=== PATIENT | male | born 1985 | race Caucasian/White ===

== ENCOUNTER 2019-05-04 20:01 | Inpatient (IN) | payer OTHER ==
[2019-05-04 21:49] VITALS: BMI 33.3
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
[2019-05-04] MEDS ORDERED: IBUPROFEN 400 MG TABLET (FP) PO PRN (23:21)
[2019-05-04] MEDS ORDERED: ONDANSETRON *ODT* 4 MG TABLET SL PRN (23:21)
[2019-05-04] MEDS ORDERED: MENTHOL/PHENOL 1 EACH UD MM PRN (23:21)
[2019-05-04] MEDS ORDERED: BISMUTH SUBSALICYLATE 524 MG/30 ML UD PO PRN (23:21)
[2019-05-04] MEDS ORDERED: NICOTINE POLACRILEX 2 MG GUM BUC PRN (23:21)
[2019-05-04] MEDS ORDERED: guaiFENesin 200 MG/10 ML 10 ML UNIT-DOSE CUPS PO PRN (23:21)
[2019-05-04] MEDS ORDERED: hydrOXYzine PAMOATE 25 MG CAPSULE (FP) PO PRN (23:21)
[2019-05-04] MEDS ORDERED: MAGNESIUM CITRATE 300 ML BOTTLE PO PRN (23:21)
[2019-05-04] MEDS ORDERED: MAGNESIUM HYDROX 2400MG/30ML ORAL SUSPENSION 30 ML CUP PO PRN (23:21)
[2019-05-04] MEDS ORDERED: P-EPHED 60MG/TRIPROLIDI 2.5MG TABLET PO PRN (23:21)
[2019-05-04] MEDS ORDERED: ACETAMINOPHEN 325 MG TABLET (FP) PO PRN (23:21)
[2019-05-04] MEDS ORDERED: DICYCLOMINE HCL 10 MG CAPSULE PO PRN (23:21)
[2019-05-05] MEDS: diazePAM 5 MG TABLET PO SCH ×4 (00:35→21:17)
[2019-05-05] MEDS: MELATONIN 5 MG TABLETS PO PRN (00:35)
[2019-05-05] MEDS ORDERED: METHADONE HCL 10 MG TABLET PO ONE (09:19)
[2019-05-05] MEDS ORDERED: METHADONE 120 MG, METHADONE 20 MG PO ONE (09:45)
[2019-05-05] MEDS ORDERED: METHADONE HCL 10 MG TABLET ONE (09:56)
[2019-05-05] MEDS ORDERED: METHADONE HCL 40 MG DISPERSABLE TABLET ONE (09:57)
[2019-05-05] MEDS: NICOTINE 14 MG/24 HOURS TOPICAL PATCH TD SCH (10:08)
[2019-05-05] MEDS: PRENATAL VITAMINS W/ FOLIC ACID TABLET (FP) PO SCH (10:08)
[2019-05-05 10:10] LABS: HEMATOCRIT 41.4 % (35.4-49); HEMOGLOBIN 14.2 GM/dL (11.7-16.9); MCH 30.4 pg (25.7-33.7); MCHC 34.3 g/dl (32.0-35.9); MEAN CELL VOLUME 88.7 fl (80-96); MEAN PLT VOLUME 9.3 fl (7.5-11.1); PLATELET COUNT 183 K/MM3 (134-434); RBC 4.67 M/mm3 (4.00-5.60); RDW 13.5 % (11.9-15.9)
[2019-05-05 10:21] LABS: ALBUMIN 3.7 g/dl (3.4-5.0); BILIRUBIN,TOTAL 0.4 mg/dL (0.2-1); BLOOD UREA NITROGEN 15.2 mg/dL (7-18); CALCIUM 8.7 mg/dL (8.5-10.1); CREATININE 0.9 mg/dL (0.55-1.3); POTASSIUM 4.2 mmol/L (3.5-5.1); TOT PROT 6.7 g/dl (6.4-8.2)
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
[2019-05-05] MEDS: hydrOXYzine PAMOATE 50 MG CAPSULE (FP) PO PRN ×2 (12:19→21:19)
--- NOTE | 2019-05-05 12:26 | PN ---
[facility] CIWA - CIWA Score Nausea/Vomitin-No Nausea/No Vomiting Muscle Tremors: 3 Anxiety: 2 Agitation: 2 Paroxysmal Sweats: 2 Orientation: 0-Oriented Tacttile Disturbances: 0-None Auditory Disturbances: 0-None Visual Disturbances: 0-None Headache: 0-None Present CIWA-Ar Total Score: 9 S Progress Note (SOAP) Subjective: anxiety restless sweats Objective: 05/05/19 12:25 Vital Signs Temperature 97.9 F 05/05/19 09:58 Pulse Rate 71 05/05/19 09:58 Respiratory Rate 19 05/05/19 09:58 Blood Pressure 142/77 05/05/19 09:58 O2 Sat by Pulse Oximetry (%) Laboratory Tests 05/05/19 05/05/19 08:30 08:30 WBC 6.0 RBC 4.67 Hgb 14.2 Hct 41.4 MCV 88.7 MCH 30.4 MCHC 34.3 RDW 13.5 Plt Count 183 MPV 9.3 Sodium 139 Potassium 4.2 Chloride 106 Carbon Dioxide 29 Anion Gap 4 L BUN 15.2 Creatinine 0.9 Est GFR (CKD-EPI)AfAm 129.61 Est GFR (CKD-EPI)NonAf 111.83 Random Glucose 97 Calcium 8.7 Total Bilirubin 0.4 AST 29 ALT 50 Alkaline Phosphatase 63 Total Protein 6.7 Albumin 3.7 aaox3 ambulating no acute distress Assessment: 05/05/19 12:25 withdrawals Plan: continue detox increase fluids
[2019-05-05] MEDS: diazePAM 5 MG TABLET PO PRN (17:42)
[2019-05-05] MEDS: THIAMINE HCL 100 MG TABLET (FP) PO SCH (21:17)
[2019-05-05] MEDS: QUEtiapine FUMARATE 100 MG TABLET (FP) PO SCH (21:17)
[2019-05-05] MEDS: ACETAMINOPHEN 325 MG TABLET (FP) PO PRN (22:22)
[2019-05-06] MEDS ORDERED: METHADONE HCL 10 MG TABLET ONE (05:04)
[2019-05-06] MEDS ORDERED: METHADONE HCL 40 MG DISPERSABLE TABLET ONE (05:05)
[2019-05-06] MEDS ORDERED: METHADONE HCL 40 MG DISPERSABLE TABLET PO SCH (06:00)
[2019-05-06] MEDS: METHADONE 120 MG, METHADONE 20 MG PO SCH (06:46)
[2019-05-06] MEDS: diazePAM 5 MG TABLET PO SCH ×2 (06:46→17:26)
[2019-05-06] MEDS: diazePAM 5 MG TABLET PO PRN ×2 (09:49→21:29)
[2019-05-06] MEDS: NICOTINE 14 MG/24 HOURS TOPICAL PATCH TD SCH (10:42)
[2019-05-06] MEDS: PRENATAL VITAMINS W/ FOLIC ACID TABLET (FP) PO SCH (10:42)
--- NOTE | 2019-05-06 16:36 | EKG ---
Test Reason : Blood Pressure : / mmHG Vent. Rate : 060 BPM Atrial Rate : 060 BPM P-R Int : 170 ms QRS Dur : 104 ms QT Int : 440 ms P-R-T Axes : 038 045 030 degrees QTc Int : 440 ms NORMAL SINUS RHYTHM NORMAL ECG NO PREVIOUS ECGS AVAILABLE Confirmed by MD KERRIE, EVITA ([id number]) on 05/06/2019 4:36:02 PM Referred By: Confirmed By:EVITA SY MD
--- NOTE | 2019-05-06 17:13 | PN ---
S CIWA - CIWA Score Nausea/Vomitin-Mild Nausea/No Vomiting Muscle Tremors: 3 Anxiety: 3 Agitation: 2 Paroxysmal Sweats: 1-Minimal Palms Moist Orientation: 0-Oriented Tacttile Disturbances: 0-None Auditory Disturbances: 0-None Visual Disturbances: 0-None Headache: 1-Very Mild CIWA-Ar Total Score: 11 [facility] Progress Note (SOAP) Subjective: c/o nausea,no vomiting, sweats, anxiety Objective: 05/06/19 17:14 Vital Signs - 24 hr 05/05/19 05/05/19 05/06/19 17:48 21:45 00:30 Temperature 98.1 F 97.9 F Pulse Rate 69 68 Respiratory 18 17 18 Rate Blood Pressure 138/79 133/89 05/06/19 05/06/19 05/06/19 03:30 07:24 09:29 Temperature 98.1 F 97.1 F L Pulse Rate 76 78 Respiratory 18 18 18 Rate Blood Pressure 128/97 140/88 05/06/19 13:40 Temperature 99.1 F Pulse Rate 77 Respiratory 18 Rate Blood Pressure 131/62 Laboratory Tests 05/05/19 05/05/19 05/05/19 08:30 08:30 08:30 WBC 6.0 RBC 4.67 Hgb 14.2 Hct 41.4 MCV 88.7 MCH 30.4 MCHC 34.3 RDW 13.5 Plt Count 183 MPV 9.3 Sodium 139 Potassium 4.2 Chloride 106 Carbon Dioxide 29 Anion Gap 4 L BUN 15.2 Creatinine 0.9 Est GFR (CKD-EPI)AfAm 129.61 Est GFR (CKD-EPI)NonAf 111.83 Random Glucose 97 Calcium 8.7 Total Bilirubin 0.4 AST 29 ALT 50 Alkaline Phosphatase 63 Total Protein 6.7 Albumin 3.7 RPR Titer Nonreactive Assessment: 05/06/19 17:14 Kyaw w/s Plan: Cont detox maintain safety increase po fluids
[2019-05-06] MEDS: METHOCARBAMOL 500 MG TABLET PO PRN (17:27)
[2019-05-06] MEDS: hydrOXYzine PAMOATE 50 MG CAPSULE (FP) PO PRN (21:27)
[2019-05-06] MEDS: THIAMINE HCL 100 MG TABLET (FP) PO SCH (21:27)
[2019-05-06] MEDS: QUEtiapine FUMARATE 100 MG TABLET (FP) PO SCH (21:27)
[2019-05-07] MEDS ORDERED: METHADONE HCL 10 MG TABLET ONE (04:12)
[2019-05-07] MEDS ORDERED: METHADONE HCL 40 MG DISPERSABLE TABLET ONE (04:13)
[2019-05-07] MEDS ORDERED: diazePAM 5 MG TABLET PO ONE ×3 (06:00→22:00)
[2019-05-07] MEDS: METHADONE 120 MG, METHADONE 20 MG PO SCH (06:05)
[2019-05-07] MEDS: METHOCARBAMOL 500 MG TABLET PO PRN ×2 (08:51→17:50)
[2019-05-07] MEDS: PRENATAL VITAMINS W/ FOLIC ACID TABLET (FP) PO SCH (10:35)
[2019-05-07] MEDS: NICOTINE 14 MG/24 HOURS TOPICAL PATCH TD SCH (10:35)
[2019-05-07] MEDS: diazePAM 5 MG TABLET PO PRN (10:37)
[2019-05-07] MEDS: hydrOXYzine PAMOATE 50 MG CAPSULE (FP) PO PRN ×2 (12:22→17:50)
[2019-05-07] MEDS ORDERED: GABAPENTIN 300 MG CAPSULE PO ONE (14:38)
--- NOTE | 2019-05-07 14:39 | PN ---
Psychiatric Progress Note Vital Signs: Vital Signs Period Temp Pulse Resp BP Sys/Herrera Pulse Ox Last 24 Hr 97.1 F-98.1 F 68-91 16-18 118-153/81-91 Date of Session: 05/07/19 Chief Complaint:: " I'm having so much anxiety. I need medications." HPI: Patient admitted to for benzodiazepine and synthetic cannabis dependence. Consultation ordered as patient is anxious, irritable, and restless. ROS: Patient is irritable, anxious, and restless. Current Medications: Active Medications Generic Name Dose Route Start Last Admin Trade Name Freq PRN Reason Stop Dose Admin Acetaminophen 650 mg 05/04/19 23:21 05/05/19 22:22 Tylenol - PO 650 mg Q6H PRN Administration PAIN LEVEL 4 - 6 Acetaminophen 650 mg 05/04/19 23:21 Tylenol - PO Q6H PRN FEVER Al Hydroxide/Mg Hydroxide 30 ml 05/04/19 23:21 Mylanta Oral Suspension - PO Q6H PRN DYSPEPSIA Bismuth Subsalicylate 524 mg 05/04/19 23:21 Pepto-Bismol - PO Q1H PRN DIARRHEA Dicyclomine HCl 10 mg 05/04/19 23:21 Bentyl - PO 05/10/19 23:22 Q6H PRN Abdominal Cramping Eucalyptus/Menthol/Phenol/Sorbitol 1 each 05/04/19 23:21 Cepastat Lozenge - MM 05/10/19 23:21 Q4H PRN SORE THROAT Guaifenesin 10 ml 05/04/19 23:21 Robitussin - PO Q6H PRN COUGH Hydroxyzine Pamoate 50 mg 05/05/19 11:36 05/07/19 12:22 Vistaril - PO 50 mg Q4H PRN Administration ANXIETY Ibuprofen 400 mg 05/04/19 23:21 Motrin - PO Q6H PRN PAIN LEVEL 1 - 3 Magnesium Citrate 300 ml 05/04/19 23:21 Citroma - PO Q48H PRN CONSTIPATION Magnesium Hydroxide 30 ml 05/04/19 23:21 Milk Of Magnesia - PO PRN PRN CONSTIPATION Melatonin 5 mg 05/04/19 23:21 05/05/19 00:35 Melatonin PO 5 mg HS PRN Administration INSOMNIA Methadone HCl 120 mg/ 140 mg 05/06/19 06:00 05/07/19 06:05 Methadone HCl 20 mg PO 05/12/19 05:59 140 mg DAILY@0600 BARBIE Administration Methocarbamol 500 mg 05/04/19 23:21 05/07/19 08:51 Robaxin - PO 05/10/19 23:21 500 mg Q6H PRN Administration MUSCLE SPASMS Nicotine 14 mg 05/05/19 10:00 05/07/19 10:35 Nicoderm Patch - TD Not Given DAILY BARBIE Nicotine Polacrilex 2 mg 05/04/19 23:21 Nicorette Gum - BUC Q2H PRN NICOTINE REPLACEMENT RX Ondansetron HCl 4 mg 05/04/19 23:21 Zofran Odt - SL 05/10/19 23:22 Q12H PRN Nausea/Vomiting Multivit/Folic Acid/Iron 1 tab 05/05/19 10:00 05/07/19 10:35 Vitamins (Sjr) - PO 1 tab DAILY BARBIE Administration Pseudoephedrine/Triprolidine 1 combo 05/04/19 23:21 Actifed - PO 05/10/19 23:22 Q6H PRN NASAL CONGESTION Quetiapine Fumarate 100 mg 05/05/19 22:00 05/06/19 21:27 Seroquel - PO 100 mg HS BARBIE Administration Thiamine HCl 100 mg 05/05/19 22:00 05/06/19 21:27 Vitamin B1 - PO 100 mg HS BARBIE Administration Medication(s) Change(s): Yes. Will give one time dose of gabapentin 600mg. Will order gabapentin 300mg BID. Current Side Effect: No Lab tests ordered: No Lab tests reviewed: Yes Provider note:: Patient seen by Dr. Fletcher. Dr. Fletcher's note read and appreciated. Consultation ordered after patient was made aware that his valium PRN was completed as he was scheduled for discharge today. Patient presents as highly upset, anxious, irritable, and restless. Patient stated to fiction writer, " i am going to have a panic attack. why would they discontinue my valium." Medications reviewed. Patient is prescribed vistaril 50mg q4h but stated that it is not very effective. Mr. Greenberg states that gabapentin 600mg is effective for his anxiety although is not currently prescribed gabapentin by outside provider. Patient also requesting lyrica but was informed by fiction writer that lyrica will not be ordered. Patient is visibly anxious and irritable. Will order a one time dose of gabapentin 600mg HS + vistaril 50mg. Will also order gabapentin 300mg BID. Benefits and side effects discussed. Verbal consent given. Total face to face time:: 25 Mental Status Exam - Mental Status Exam Alert and Oriented to: Time, Place, Person Cognitive Function: Good Patient Appearance: Well Groomed Mood: Anxious, Irritable Affect: Mood Congruent Patient Behavior: Restless, Agitated Speech Pattern: Clear, Excessive Voice Loudness: Normal, Mildly Loud Thought Process: Intact, Goal Oriented Thought Disorder: Not Present Hallucinations: Denies Suicidal Ideation: Denies Homicidal Ideation: Denies Insight/Judgement: Poor Sleep: Fair Appetite: Fair Muscle strength/Tone: Normal Gait/Station: Normal Psychiatric Treatment Plan - Problem List (1) Substance induced mood disorder Current Visit: Yes (2) Substance-induced sleep disorder Current Visit: Yes (3) ADHD (attention deficit hyperactivity disorder) Current Visit: No (4) Methadone maintenance therapy patient Current Visit: Yes (5) Mood disorder Current Visit: Yes (6) Cannabis dependence Current Visit: Yes (7) Sedative, hypnotic or anxiolytic dependence with withdrawal, uncomplicated Current Visit: Yes
[2019-05-07] MEDS ORDERED: hydrOXYzine PAMOATE 25 MG CAPSULE (FP) PO ONE (15:00)
--- NOTE | 2019-05-07 17:01 | PN ---
[facility] CIWA - CIWA Score Nausea/Vomitin-No Nausea/No Vomiting Muscle Tremors: 3 Anxiety: 5 Agitation: 5 Paroxysmal Sweats: 2 Orientation: 0-Oriented Tacttile Disturbances: 0-None Auditory Disturbances: 0-None Visual Disturbances: 0-None Headache: 0-None Present CIWA-Ar Total Score: 15 [facility] Progress Note (SOAP) Subjective: Patient extremely anxious, irritable, pacing in hallway requesting medication, argumentative, sweating. Objective: 05/07/19 16:59 Vital Signs Temperature 97.7 F 05/07/19 13:00 Pulse Rate 83 05/07/19 13:00 Respiratory Rate 16 05/07/19 13:00 Blood Pressure 130/81 05/07/19 13:00 O2 Sat by Pulse Oximetry (%) Laboratory Tests 05/05/19 05/05/19 05/05/19 08:30 08:30 08:30 WBC 6.0 RBC 4.67 Hgb 14.2 Hct 41.4 MCV 88.7 MCH 30.4 MCHC 34.3 RDW 13.5 Plt Count 183 MPV 9.3 Sodium 139 Potassium 4.2 Chloride 106 Carbon Dioxide 29 Anion Gap 4 L BUN 15.2 Creatinine 0.9 Est GFR (CKD-EPI)AfAm 129.61 Est GFR (CKD-EPI)NonAf 111.83 Random Glucose 97 Calcium 8.7 Total Bilirubin 0.4 AST 29 ALT 50 Alkaline Phosphatase 63 Total Protein 6.7 Albumin 3.7 RPR Titer Nonreactive PE alert and oriented x 3 skin warm, + sweating, facial flushing neck supple, no jvd car s1s2 resp cta ext + tremors, full rom amb ad jennifer extremely anxious, irritable angry Assessment: 05/07/19 17:00 BZO withdrawal symptoms [facility] Plan: Patient received last 5mg dose of valium today, however, prn valium active and he was medicated with 10mg at 10:37am. Due to active prn schedule, dose titration not completed. Case discussed with Dr. Chisholm and Dr. Julio, both agreed to discontinue prn Valium, but to order 5mg dose for this afternoon and this evening, start Valium 5mg bid tomorrow then daily x one on 05/09/19. Patient agreed with plan. Patient also seen by psych and started on gabapentin. continue detox monitor clinically
[2019-05-07] MEDS: GABAPENTIN 300 MG CAPSULE PO SCH (22:11)
[2019-05-07] MEDS: MELATONIN 5 MG TABLETS PO PRN (22:12)
[2019-05-07] MEDS: THIAMINE HCL 100 MG TABLET (FP) PO SCH (22:12)
[2019-05-07] MEDS: QUEtiapine FUMARATE 100 MG TABLET (FP) PO SCH (22:12)
[2019-05-07] MEDS: ACETAMINOPHEN 325 MG TABLET (FP) PO PRN (22:19)
[2019-05-08] MEDS ORDERED: METHADONE HCL 10 MG TABLET ONE (04:16)
[2019-05-08] MEDS ORDERED: METHADONE HCL 40 MG DISPERSABLE TABLET ONE (04:16)
[2019-05-08] MEDS: METHADONE 120 MG, METHADONE 20 MG PO SCH (05:54)
[2019-05-08] MEDS: hydrOXYzine PAMOATE 50 MG CAPSULE (FP) PO PRN ×3 (05:56→18:50)
[2019-05-08] MEDS: PRENATAL VITAMINS W/ FOLIC ACID TABLET (FP) PO SCH (09:54)
[2019-05-08] MEDS: GABAPENTIN 300 MG CAPSULE PO SCH ×2 (09:54→22:00)
[2019-05-08] MEDS: NICOTINE 14 MG/24 HOURS TOPICAL PATCH TD SCH (09:54)
[2019-05-08] MEDS: diazePAM 5 MG TABLET PO SCH ×2 (09:55→22:00)
[2019-05-08 10:08] LABS: PH,URINE 5.5 (5.0-8.0); URINE APPEARANCE CLEAR; URINE BILIRUBIN NEGATIVE (NEGATIVE); URINE COLOR YELLOW; URINE GLUCOSE (UA) NEGATIVE (NEGATIVE); URINE KETONE NEGATIVE (NEGATIVE); URINE LEUK ESTERASE NEGATIVE (NEGATIVE); URINE NITRITE NEGATIVE (NEGATIVE); URINE PROTEIN NEGATIVE (NEGATIVE); URINE UROBILINOGEN 0.2 mg/dL (0.2-1.0)
[2019-05-08] MEDS ORDERED: COLLOIDAL OATMEAL 1 BAR EACH TP ONE (11:56)
[2019-05-08] MEDS ORDERED: cloNIDine HCL 0.1 MG TABLET PO ONE (11:59)
--- NOTE | 2019-05-08 12:21 | PN ---
[facility] CIWA - CIWA Score Nausea/Vomitin-No Nausea/No Vomiting Muscle Tremors: 3 Anxiety: 2 Agitation: 2 Paroxysmal Sweats: 2 Orientation: 0-Oriented Tacttile Disturbances: 0-None Auditory Disturbances: 0-None Visual Disturbances: 0-None Headache: 0-None Present CIWA-Ar Total Score: 9 [facility] Progress Note (SOAP) Subjective: sweats anxiety restless rash on my belly and inner thighs cause i sweat alot Objective: 05/08/19 11:59 Vital Signs Temperature 98.0 F 05/08/19 09:06 Pulse Rate 117 H 05/08/19 09:06 Respiratory Rate 18 05/08/19 09:06 Blood Pressure 131/82 05/08/19 09:06 O2 Sat by Pulse Oximetry (%) aaox3 ambulating no acute distress Assessment: 05/08/19 12:00 withdrawals fungal rash noted to belly area. pt states it looks like the same rash inner thighs. Plan: continue detox aveeno soap x one ordered nystatin cream ordered d/c in am
[2019-05-08] MEDS: METHOCARBAMOL 500 MG TABLET PO PRN ×2 (12:35→18:50)
[2019-05-08] MEDS: NYSTATIN 100,000 UNIT/GM TOPICAL CREAM 15 GM TUBE TP SCH ×3 (15:44→23:41)
[2019-05-08] MEDS: QUEtiapine FUMARATE 100 MG TABLET (FP) PO SCH (22:00)
[2019-05-08] MEDS: THIAMINE HCL 100 MG TABLET (FP) PO SCH (22:00)
[2019-05-08] MEDS: MELATONIN 5 MG TABLETS PO PRN (22:01)
[2019-05-09] MEDS ORDERED: METHADONE HCL 10 MG TABLET ONE (03:57)
[2019-05-09] MEDS ORDERED: METHADONE HCL 40 MG DISPERSABLE TABLET ONE (03:58)
[2019-05-09] MEDS: METHADONE 120 MG, METHADONE 20 MG PO SCH (05:21)
[2019-05-09] MEDS: diazePAM 5 MG TABLET PO SCH (05:21)
[2019-05-09] MEDS: METHOCARBAMOL 500 MG TABLET PO PRN (05:44)
[2019-05-09] MEDS: hydrOXYzine PAMOATE 50 MG CAPSULE (FP) PO PRN ×2 (05:44→13:26)
[2019-05-09] MEDS ORDERED: diazePAM 5 MG TABLET PO SCH (06:00)
[2019-05-09] MEDS: NYSTATIN 100,000 UNIT/GM TOPICAL CREAM 15 GM TUBE TP SCH ×2 (07:04→13:16)
[2019-05-09] MEDS: MAG HYDROX/AL HYDROX/SIMETH 30 ML UNIT-DOSE CUP PO PRN ×2 (07:28→13:24)
--- NOTE | 2019-05-09 08:58 | DS ---
[facility] Detox Discharge Summary Admission Date: 05/04/19 Discharge Date: 05/09/19 - History Present History: Cannabis Dependence, Sedative Dependence, MMTP - Physical Exam Results Vital Signs: Vital Signs Temperature 96.4 F L 05/09/19 06:27 Pulse Rate 90 05/09/19 06:27 Respiratory Rate 18 05/09/19 06:27 Blood Pressure 136/69 05/09/19 06:27 O2 Sat by Pulse Oximetry (%) Pertinent Admission Physical Exam Findings: Vital Signs Temperature 96.4 F L 05/09/19 06:27 Pulse Rate 90 05/09/19 06:27 Respiratory Rate 18 05/09/19 06:27 Blood Pressure 136/69 05/09/19 06:27 O2 Sat by Pulse Oximetry (%) Laboratory Tests 05/05/19 05/05/19 05/05/19 08:30 08:30 08:30 WBC 6.0 RBC 4.67 Hgb 14.2 Hct 41.4 MCV 88.7 MCH 30.4 MCHC 34.3 RDW 13.5 Plt Count 183 MPV 9.3 Sodium 139 Potassium 4.2 Chloride 106 Carbon Dioxide 29 Anion Gap 4 L BUN 15.2 Creatinine 0.9 Est GFR (CKD-EPI)AfAm 129.61 Est GFR (CKD-EPI)NonAf 111.83 Random Glucose 97 Calcium 8.7 Total Bilirubin 0.4 AST 29 ALT 50 Alkaline Phosphatase 63 Total Protein 6.7 Albumin 3.7 Urine Color Urine Appearance Urine pH Ur Specific Jackson Urine Protein Urine Glucose (UA) Urine Ketones Urine Blood Urine Nitrite Urine Bilirubin Urine Urobilinogen Ur Leukocyte Esterase RPR Titer Nonreactive 05/08/19 07:30 WBC RBC Hgb Hct MCV MCH MCHC RDW Plt Count MPV Sodium Potassium Chloride Carbon Dioxide Anion Gap BUN Creatinine Est GFR (CKD-EPI)AfAm Est GFR (CKD-EPI)NonAf Random Glucose Calcium Total Bilirubin AST ALT Alkaline Phosphatase Total Protein Albumin Urine Color Yellow Urine Appearance Clear Urine pH 5.5 Ur Specific Jackson 1.012 Urine Protein Negative Urine Glucose (UA) Negative Urine Ketones Negative Urine Blood Negative Urine Nitrite Negative Urine Bilirubin Negative Urine Urobilinogen 0.2 Ur Leukocyte Esterase Negative RPR Titer aaox3 ambulating no acute distress - Treatment Hospital Course: Detox Protocol Followed, Detoxed Safely, Responded well, Discharged Condition Good, Rehab Referral Accepted - Medication Discharge Medications: Ambulatory Orders NK [No Known Home Medication] 05/04/19 - Diagnosis (1) Cannabis dependence Current Visit: Yes Status: Chronic (2) Depressed affect Current Visit: Yes Status: Acute (3) GERD (gastroesophageal reflux disease) Current Visit: Yes Status: Chronic Qualifiers: Esophagitis presence: without esophagitis Qualified Code(s): K21.9 - Gastro -esophageal reflux disease without esophagitis (4) Sedative, hypnotic or anxiolytic dependence with withdrawal, uncomplicated Current Visit: Yes Status: Chronic (5) Substance induced mood disorder Current Visit: Yes Status: Acute (6) Substance-induced sleep disorder Current Visit: Yes Status: Acute (7) Acid reflux disease Current Visit: Yes Status: Chronic Qualifiers: Esophagitis presence: without esophagitis Qualified Code(s): K21.9 - Gastro -esophageal reflux disease without esophagitis (8) History of drug withdrawal syndrome Current Visit: Yes Status: Chronic (9) IVDU (intravenous drug user) Current Visit: Yes Status: Chronic (10) Methadone maintenance therapy patient Current Visit: Yes Status: Chronic (11) Mood disorder Current Visit: Yes Status: Chronic (12) Nicotine dependence Current Visit: Yes Status: Chronic Qualifiers: Nicotine product type: cigarettes Substance use status: uncomplicated Qualified Code(s): F17.210 - Nicotine dependence, cigarettes, uncomplicated (13) Opioid dependence on agonist therapy Current Visit: Yes Status: Chronic (14) Psychiatric disorder Current Visit: Yes Status: Chronic (15) Homeless Current Visit: Yes Status: Suspected (16) Non compliance w medication regimen Current Visit: Yes Status: Suspected (17) Substance induced mood disorder Current Visit: Yes Status: Suspected (18) Substance-induced sleep disorder Current Visit: Yes Status: Suspected (19) Seizure concurrent with and due to anxiolytic withdrawal Current Visit: Yes Status: Resolved (20) ADHD (attention deficit hyperactivity disorder) Current Visit: No Status: Chronic - AMA Did Patient Leave Against Medical Advice: No
[2019-05-09] MEDS: PRENATAL VITAMINS W/ FOLIC ACID TABLET (FP) PO SCH (09:29)
[2019-05-09] MEDS: NICOTINE 14 MG/24 HOURS TOPICAL PATCH TD SCH (09:29)
[2019-05-09] MEDS: GABAPENTIN 300 MG CAPSULE PO SCH (09:29)
[2019-05-09 14:00] VITALS: BP 137/84; PULSE 94; TEMP 97.9
== END 2019-05-09 14:16 | disposition other institution (70) | DRG 773 ==
LOC: YASAS 20:01 → Y6N 23:17
PROVIDERS: ADMIT Allergy & Immunology; ATTEND Allergy & Immunology
PROC: HZ2ZZZZ Detoxification Services for Substance Abuse Treatment (ICD-10-PCS; principal; 2019-05-04)
DX: F13.230 Sedative, hypnotic or anxiolytic dependence with withdrawal, uncomplicated (principal); F11.20 Opioid dependence, uncomplicated; F12.20 Cannabis dependence, uncomplicated; F17.210 Nicotine dependence, cigarettes, uncomplicated; F19.282 Other psychoactive substance dependence with psychoactive substance-induced sleep disorder; F19.24 Other psychoactive substance dependence with psychoactive substance-induced mood disorder; F41.9 Anxiety disorder, unspecified; F43.10 Post-traumatic stress disorder, unspecified; G40.509 Epileptic seizures related to external causes, not intractable, without status epilepticus; R45.89 Other symptoms and signs involving emotional state; Z88.0 Allergy status to penicillin; Z59.0 Homelessness
CPT/HCPCS: 36415; 80053; 81003; 85027; 86593; 93005; 93010; J0735